=== PATIENT | female | born 1985 | race Caucasian/White ===

== ENCOUNTER 2016-07-29 17:52 | Day surgery (SDC) | payer OTHER ==
[2016-07-29 18:43] LABS: ABSOLUTE NEUTROPHIL COUNT 8.3 K/mm3 (1.8-7.7); BASO # 0.1 K/mm3 (0.0-0.2); BASO % 0.5 % (0.2-1.0); EOS # 0.1 (0.0-0.5); EOS % 0.5 % (0.9-2.9); HEMATOCRIT 43.3 % (37.0-47.0); HEMOGLOBIN 14.1 gm/l (12.0-16.0); IMM NEUT # 0.1 K/mm3 (0-0.2); IMM NEUT% 0.5 % (0-1); LYMPH # 3.6 (1.0-4.8); MEAN CELL VOLUME 86.8 fl (81.0-99.0); MEAN CORPUSCULAR HEMOGLOBIN 28.3 pg (27.0-31.0); MEAN CORPUSCULAR HGB CONC 32.6 g/dl (33.0-37.0); MEAN PLATELET VOLUME 9.8 fl (7.4-10.4); MONO # 0.8 (0.0-0.8); MONO % 6.5 % (4-12); PLATELET COUNT 352 K/mm3 (130-400)
[2016-07-29 19:06] LABS: ALB/GLOB RATIO 1.2 (>1.0); CALCIUM 9.3 mg/dL (8.6-10.3)
[2016-07-29] MEDS ORDERED: ONDANSETRON 4 MG/2ML 2 ML VIAL ONE (19:09)
[2016-07-29] MEDS ORDERED: MORPHINE SULFATE 4 MG/ML SYRINGE ONE ×2 (19:09→21:06)
[2016-07-29] MEDS ORDERED: ERTAPENEM SODIUM 1 G VIAL ONE (21:14)
--- NOTE | 2016-07-29 21:23 | PDOC1 ---
History & Physical: CC: RLQ Pain HPI: 30yo F with Crohn's disease presents with RLQ pain. This started yesterday in the RLQ and has stayed in the RLQ. The pain is constant but intermittently worsens. It is associated with subjective fevers, chills, nasuea, vomiting, and mucus stools. The patient has some mild albeit improving chest pain and shortness of breath related to bronchitis she had a week ago. Of note, she was put on a rapid 5 day taper of prednisone for this bronchitis. The patient denies any recent change in bladder fx, constipation, diarrhea, unintentional weight loss, easy bleeding/bruising, or other associated symptoms. REVIEW OF SYSTEMS CONSTITUTIONAL: As per HPI. EARS, NOSE, MOUTH, THROAT: No sneezing or runny nose CARDIOVASCULAR: As per HPI. RESPIRATORY: As per HPI. GASTROINTESTINAL: As per HPI. GENITOURINARY: As per HPI. NEUROLOGICAL: No history of seizures HEMATOLOGIC: As per HPI. MUSCULOSKELETAL: No change in strength. LYMPHATICS: No history of splenectomy. PSYCHIATRIC: No change in personality or affect PMH: Crohn's disease PSH: , laparoscopic ovarian cystectomy Meds: Budesonide, Meslamine, OCPs All: Trazodone, Reglan (paradoxical effects) SH: Denies tobacco, rare EtOH FH: Not significant Vitals (last 24 hours): Physical Exam: General/Constitutional: Vitals documented above, comfortable in NAD Psych: A&O x 3, normal judgment and insight. Recent and remote memory intact. Mood and affect normal. Eyes: Pupils equal, no scleral icterus Ears, Nose, Mouth, Throat: gross hearing intact Neck: Supple Heart: RRR, no LE edema Lungs: Equal rise and fall of chest wall, non-labored breathing, no audible wheezes Neuro: Gross sensation intact Abdomen: Soft, obese, ND, mild RLQ TTP, no guarding Labs (Last 24 hours): Laboratory Results - last 24 hr 07/29/16 18:20 WBC 13.0 H RBC 4.99 Hgb 14.1 Hct 43.3 MCV 86.8 MCH 28.3 MCHC 32.6 L RDW 14.0 Plt Count 352 Neut % (Auto) 64.0 Lymph % (Auto) 28.0 [place] % (Auto) 6.5 Baso % (Auto) 0.5 Absolute Neuts (auto) 8.3 H Eosinophils % 0.5 L Sodium 135 Potassium 3.6 Chloride 102 Carbon Dioxide 23 Anion Gap 14 BUN 9 Creatinine 0.7 Estimated GFR 99 BUN/Creatinine Ratio 13 Glucose 88 Calcium 9.3 Total Bilirubin 0.7 AST 16 ALT 26 Alkaline Phosphatase 59 Total Protein 7.3 Albumin 4.0 Globulin 3.3 Albumin/Globulin Ratio 1.2 Beta HCG, Qual Negative % Immature Granulocyt 0.5 Radiology: CT A/P demonstrates acute non-perforated appendicitis A/P: 30yo F with Crohn's disease with acute appendicitis. She was given 1g IV Invanz in the ED. I recommend laparoscopic appendectomy. The operation and expected post-operative course were discussed at length. We discussed the risks of the operation to include, but not limited to: bleeding, pain, infection, scar, damage to surrounding structures (small bowel, colon, bladder), failure to improve health, need for additional procedures (to include conversion to open and ileocecectomy), and the risks of anesthesia (heart attack , arrhythmia, stroke, blood clot, and ). The patient understands these risks and agrees to proceed with surgery. I have specifically counseled her on a higher rate of conversion to open and ileocectomy due to her Crohn's disease. I do not believe she will need a stress dose of steroids given that her recent prednisone use was a rapid 5 day taper and ended about a week ago. Jaxson Obando MD General Surgeon
[2016-07-29] MEDS ORDERED: MORPHINE SULFATE 2 MG/ML SYRINGE IV PRN (22:07)
[2016-07-29] MEDS ORDERED: ONDANSETRON 4 MG/2ML 2 ML VIAL IV PRN ×2 (22:07→23:36)
[2016-07-29] MEDS ORDERED: MENTHOL/CETYLPYRD 1 EACH LOZENGE PO PRN (22:07)
[2016-07-29] MEDS ORDERED: LACTATED RINGERS 1,000 ML IV SCH ×2 (22:07→23:45)
[2016-07-29] MEDS ORDERED: BLISTEX LIPSTICK 1 EACH TP PRN (22:07)
[2016-07-29 22:21] VITALS: BMI 41.3
[2016-07-29 22:57] VITALS: BP 141/84
[2016-07-29] MEDS ORDERED: LIDOCAINE 1% (PRES FREE) 30 ML VIAL ONE (23:15)
[2016-07-29] MEDS ORDERED: BUPIVACAINE 0.5% W/EPI SDV 30 ML VIAL ONE (23:15)
[2016-07-29] MEDS ORDERED: HYDROMORPHONE HCL 1 MG/ML SYRINGE IV PRN (23:36)
[2016-07-29] MEDS ORDERED: PROMETHAZINE HCL 25 MG/ML VIAL IM PRN (23:36)
[2016-07-29] MEDS ORDERED: FENTANYL 250 MCG/5 ML AMP ONE (23:38)
--- NOTE | 2016-07-30 | PCMON ---
OPERATIVE REPORT Pre-Op Diagnosis: Acute appendicitis Post-Op Diagnosis: Acute appendicitis Operation: Laparoscopic Appendectomy Surgeon: Francisco Obando MD [employer] Supervisor: None Anesthesia: GETA Pre-Operative Antibiotics: Invanz 1g Specimen Sent to Lab: Appendix Date of Operation: 29 Jul 2016 Infection Classification: 2 Estimated Blood Loss: 5mL Indication for Procedure: The patient is a 30 year old female with Crohns disease who presents with one day of RLQ pain. She has an elevated WBC and a CT scan shows a dilated and inflamed appendix. These findings are consistent with acute appendicitis. The plan for today is a laparoscopic appendectomy. Description of Findings: The appendix was thickened and injected consistent with acute appendicitis. Detailed Operative Report: The patient was met in the pre-operative holding area by the operating team. All questions and concerns were addressed appropriately. The patient was taken to the operating room where general anesthesia was induced. A Asencio catheter was placed. The abdomen was prepped and draped in the normal sterile fashion. ~ Local anesthetic was injected into the proposed infra-umbilical incision site. The skin was incised. The fascia was elevated and incised. Direct entry into the peritoneum was confirmed. A 12mm~balloon trocar was inserted into the abdomen. The abdomen was insufflated to a pressure of 15mm Hg, which the patient tolerated well. The laparoscope was inserted and the abdomen was inspected. There were no injuries from initial trocar placement. Two additional 5mm trocars were placed in the left lower quadrant and supra-pubic positions. The table was placed in the Trendelenburg position with the right side up. ~ The appendix was readily visible. It appeared inflamed but not perforated. The appendix was grasped and a mesenteric window was created at the base of the appendix. The appendix was divided with a linear cutting stapler using a 45mm blue load. The mesoappendix was similarly divided using a 45mm white load. The appendix was placed into an endoscopic retrieval bag. The right lower quadrant was thoroughly inspected and hemostasis was ensured. ~ Secondary trocars were removed under direct vision. The infra-umbilical trocar was removed along with the specimen and the abdomen was allowed to collapse. The fascia of the infra-umbilical site was closed with 0-Vicryl in a figure of eight fashion. All skin was closed with 4-0 Monocryl. The wounds were dressed with mastisol, steri-strips, and band-aids. The Asencio catheter was removed. The patient was then awakened from anesthesia, extubated, and transferred to the PACU without complication. Prior to closing, all sponge and instrument counts were correct.~~ FRANCISCO OBANDO MD
[2016-07-30] MEDS: FENTANYL 100 MCG/2 ML VIAL IV PRN ×2 (00:35→00:47)
[2016-07-30] MEDS ORDERED: OXYCODONE/ACETAMINOPHEN 5/325 MG TABLET PO PRN (01:17)
--- NOTE | 2016-08-04 14:21 | CT ---
Exam Type: ABD/PELVIS W/O CON Date and Time: 07/29/2016 12:00 AM Clinical information: Right lower quadrant pain. Comparison: 11/03/2015. Procedure: Imaging device: [employer] [address] scanner 1 mm axial images were obtained through the abdomen and pelvis. Stacked reconstructed 3, 4 and 5 mm images were photographed in the axial coronal and sagittal planes. No oral contrast was utilized for this examination. Exam: Without intravenous contrast. FINDINGS: Lung bases:The visualized lung bases appear to be appropriate with no mass, effusion or consolidation visualized. Liver: the liver is homogeneous with no discrete abnormality visualized. No definite findings of biliary dilatation are observed. Spleen: The spleen is homogeneous and does not appear to be enlarged. Gallbladder: There is contrast material identified within the lumen of the gallbladder, likely vicarious excretion from the patient's earlier contrast enhanced CT scan. Pancreas: Normal without enlargement or evidence of adjacent inflammatory changes. Adrenal glands: Normal without enlargement or evidence of adjacent inflammatory changes. Abdominal aorta: The aorta is of normal caliber and appears to be without significant atherosclerotic disease. Kidneys: The kidneys appear to be symmetric in size with no perinephric inflammatory changes are identified. No current findings of hydronephrosis are seen. Bowel structures: The visualized bowel is of normal caliber without evidence of dilatation or obstruction. No free fluid or mesenteric inflammatory changes are identified. Appendix: The appendix is well-visualized and appears to be prominent in size measuring up to 8.5 mm transversely in the coronal plane. Mild adjacent inflammatory stranding is also suggested. No free fluid or free air is visualized however. Bladder: The bladder is of normal contour. No wall thickening or significant distention is observed. Hernia: No abdominal wall or inguinal hernia is visualized on this examination. Adenopathy: A few mildly prominent central and right lower quadrant mesenteric lymph nodes are identified. Osseous structures: No discrete osseous abnormalities are identified. Pelvic structures: No discrete pelvic abnormalities are visualized in this examination. IMPRESSION: 1. Enlarged appendiceal size with mild adjacent inflammatory stranding suspicious for findings of acute appendicitis. No focal fluid collection is visualized however. 2. Contrast material within the patient's gallbladder, renal collecting systems, and bladder from contrast enhanced CT examination performed earlier the same day. The findings were called to the emergency room at 2027 hours,07/29/2016, by [facility] radiology.
== END 2016-07-30 01:35 | disposition home or self-care (01) ==
LOC: ED 17:52 → SDC 18:33 → MS 19:09 → SDC 07-30 01:35
PROVIDERS: ATTEND Surgery
PROC: 0DTJ4ZZ Resection of Appendix, Percutaneous Endoscopic Approach (ICD-10-PCS; principal; 2016-07-29)
DX: K35.80 Unspecified acute appendicitis (principal); Z79.899 Other long term (current) drug therapy; Z88.8 Allergy status to other drugs, medicaments and biological substances